=== PATIENT | female | born 1990 | race Two or more races ===

== ENCOUNTER 2018-01-26 20:34 | Emergency (ER) | payer OTHER ==
[2018-01-26] MEDS ORDERED: ACETAMINOPHEN 500 MG TAB PO ONE (20:44)
--- NOTE | 2018-01-26 20:45 | EDPHY ---
H & P Time Seen by Provider: 01/26/18 20:43 HPI/ROS: CHIEF COMPLAINT: Left ankle pain HISTORY OF PRESENT ILLNESS: The patient is a 27-year-old female 8 weeks who states that she twisted her ankle while she was walking about 5 hr ago. She has pain in her left ankle and some mild swelling. No pain in her foot or knee. She denies other injuries. This is her 4th . No bleeding no abdominal pain. REVIEW OF SYSTEMS: Constitutional: denies: chills, fever, recent illness, recent injury EENTM: denies: blurred vision, double vision, nose congestion Respiratory: denies: cough, shortness of breath Cardiac: denies: chest pain, irregular heart rate, lightheadedness, palpitations Gastrointestinal/Abdominal: denies: abdominal pain, diarrhea, nausea, vomiting, blood streaked stools Genitourinary: denies: dysuria, frequency, hematuria, pain Musculoskeletal: See HPI Skin: denies: lesions, rash, jaundice, bruising Neurological: denies: headache, numbness, paresthesia, tingling, dizziness, weakness Hematologic/Lymphatic: denies: blood clots, easy bleeding, easy bruising Immunologic/allergic: denies: HIV/AIDS, transplant EXAM: GENERAL: Well-appearing, well-nourished and in no acute distress. HEAD: Atraumatic, normocephalic. EYES: Pupils equal round and reactive to light, extraocular movements intact, sclera anicteric, conjunctiva are normal. ENT: TMs normal, nares patent, oropharynx clear without exudates. Moist mucous membranes. NECK: Normal range of motion, supple without lymphadenopathy or JVD. LUNGS: Breath sounds clear to auscultation bilaterally and equal. No wheezes rales or rhonchi. HEART: Regular rate and rhythm without murmurs, rubs or gallops. ABDOMEN: Gravid, nontender, normoactive bowel sounds. No guarding, no rebound. No masses appreciated. BACK: No CVA tenderness, no spinal tenderness, step-offs or deformities EXTREMITIES: Left ankle with moderate swelling laterally. No bony tenderness. No tenderness to the foot or tib-fib region. Normal range of motion. NEUROLOGICAL: Cranial nerves II through XII grossly intact. Normal speech, normal gait. 5/5 strength, normal movement in all extremities, normal sensation PSYCH: Normal mood, normal affect. SKIN: Warm, dry, normal turgor, no visible rashes or lesions. Source: Patient - Medical/Surgical History Hx Asthma: No Hx Chronic Respiratory Disease: No Hx Diabetes: No Hx Cardiac Disease: No Hx Renal Disease: No Hx Cirrhosis: No Hx Alcoholism: No Hx HIV/AIDS: No - Family History Significant Family History: No pertinent family hx - Social History Alcohol Use: None Constitutional: Initial Vital Signs Temperature (C) 36.7 C 01/26/18 20:40 Heart Rate 87 01/26/18 20:40 Respiratory Rate 16 01/26/18 20:40 Blood Pressure 131/82 H 01/26/18 20:40 O2 Sat (%) 97 01/26/18 20:40 O2 Delivery Mode Room Air Allergies/Adverse Reactions: Penicillins Allergy (Intermediate, Verified 01/26/18 20:47) Rash Home Medications: Medication Instructions Recorded Aspirin 81mg (*) 81 mg PO BID 01/26/18 Medical Decision Making - Diagnostics Imaging: I viewed and interpreted images myself (No fracture) Procedures: Procedure: Splint placement. A Velcro ankle splint was applied. After application of the splint I returned and re-examined the patient. The splint was adequately immobilizing the joint and distal to the splint the patient's circulation and sensation was intact. ED Course/Re-evaluation: We discussed the x-ray results. She is reassured. She was fitted with a brace and crutches to use as needed. Weight-bearing as tolerated. We discussed follow-up and indications for returning. She is happy with this plan and declines further workup or testing. Differential Diagnosis: Partial list of the Differential diagnosis considered include but were not limited to; ankle sprain, fracture and although unlikely based on the history and physical exam, I also considered nerve injury, vascular injury. I discussed these differential diagnoses and the plan with the patient as well as the usual and expected course. The patient understands that the diagnosis is provisional and that in medicine we are not always correct and that further workup is often warranted. Usual and customary warnings were given. All of the patient's questions were answered. The patient was instructed to return to the emergency department should the symptoms at all worsen or return, otherwise to followup with the physician as we discussed. - Data Points Medications Given: Discontinued Medications Acetaminophen (Tylenol) 1,000 mg PO EDNOW ONE Stop: 01/26/18 20:45 Last Admin: 01/26/18 21:02 Dose: 1,000 mg Departure - Departure Disposition: Home, Routine, Self-Care Clinical Impression: Left ankle sprain Qualifiers: Encounter type: initial encounter Involved ligament of ankle: unspecified ligament Qualified Code(s): S93.402A - Sprain of unspecified ligament of left ankle, initial encounter Condition: Fair Instructions: Ankle Sprain (DC) Referrals: NONE *PRIMARY CARE P,. [Primary Care Provider] - As per Instructions Vu Grier MD [Medical Doctor] - As per Instructions
[2018-01-26 21:48] VITALS: BP 127/80
== END 2018-01-26 21:44 | disposition home or self-care (01) ==
LOC: CED 20:34
DX: O9A.211 Injury, poisoning and certain other consequences of external causes complicating pregnancy, first trimester (principal); S93.402A Sprain of unspecified ligament of left ankle, initial encounter; Z3A.08 8 weeks gestation of pregnancy; X50.9XXA Other and unspecified overexertion or strenuous movements or postures, initial encounter
CPT/HCPCS: 73590-PO; 73610-PO; L4350